=== PATIENT | female | born 2000 | race Caucasian/White ===

== ENCOUNTER 2023-12-02 21:00 | Observation (INO) | payer BC ==
[~2023-12-02] VITALS: Ht 165.1 cm; Wt 83.9 kg
[2023-12-02] MEDS: LACTATED RINGER'S 1,000 ML IV ONE (22:12)
[2023-12-02] MEDS: NIFEdipine 10 MG CAP PO ONE (23:43)
[2023-12-02] MEDS: LACTATED RINGER'S 1,000 ML IV SCH (23:46)
[2023-12-03] MEDS ORDERED: NIF10C PO (02:45)
[2023-12-03] MEDS ORDERED: PREN-96 PO (02:46)
== END 2023-12-03 02:56 | disposition home or self-care (01) ==
LOC: EEVIPCON 21:00 → LDRP 21:00
PROVIDERS: ADMIT Obstetrics & Gynecology; ATTEND Obstetrics & Gynecology
DX: O62.9 Abnormality of forces of labor, unspecified (principal); O99.352 Diseases of the nervous system complicating pregnancy, second trimester; R00.2 Palpitations; Z3A.28 28 weeks gestation of pregnancy; Z88.5 Allergy status to narcotic agent
CPT/HCPCS: 59025; 76815; 81002; 94760; 96360; 96361; G0378

== ENCOUNTER 2023-12-13 18:46 | Observation (INO) | payer BC ==
[~2023-12-13] VITALS: Ht 162.6 cm; Wt 86.2 kg
[~2023-12-13 18:46] MED LIST: NIF10C PO; PREN-96 PO
[2023-12-13] MEDS: LACTATED RINGER'S 1,000 ML IV ONE (20:11)
[2023-12-13] MEDS: ONDANSETRON HCL 4 MG/2 ML VIAL IV ONE (20:14)
[2023-12-13] MEDS: BETAMETHASONE ACET (30mg/5ml) 5ml Vial 6mg/ml IM ONE (22:21)
== END 2023-12-13 22:53 | disposition home or self-care (01) ==
LOC: LDRP 18:46
PROVIDERS: ADMIT Obstetrics & Gynecology; ATTEND Obstetrics & Gynecology
DX: O60.03 Preterm labor without delivery, third trimester (principal); O21.2 Late vomiting of pregnancy; Z3A.29 29 weeks gestation of pregnancy
CPT/HCPCS: 59025; 76815; 81002; 94760; 96361; 96372; 96374; G0378; J0702; J2405; 96360

== ENCOUNTER 2023-12-14 07:56 | Observation (INO) | payer BC ==
[~2023-12-14] VITALS: Ht 162.6 cm; Wt 86.2 kg
[2023-12-14] MEDS: BETAMETHASONE ACET (30mg/5ml) 5ml Vial 6mg/ml IM STA (10:23)
== END 2023-12-14 10:55 | disposition home or self-care (01) ==
LOC: LDRP 09:38 → UNDOADMOB 09:38 → LDRP 10:07
PROVIDERS: ADMIT Obstetrics & Gynecology; ATTEND Obstetrics & Gynecology
DX: O47.03 False labor before 37 completed weeks of gestation, third trimester (principal); Z3A.29 29 weeks gestation of pregnancy
CPT/HCPCS: 59025; 81002; 94760; 96372; G0378

== ENCOUNTER 2024-02-23 10:04 | Observation (INO) | payer BC ==
[~2024-02-23 10:04] MED LIST changes: -NIF10C PO; +NIFE10CA52 PO
== END 2024-02-23 11:14 | disposition home or self-care (01) ==
LOC: LDRP 10:04
PROVIDERS: ADMIT Obstetrics & Gynecology; ATTEND Obstetrics & Gynecology
DX: O60.03 Preterm labor without delivery, third trimester (principal); Z3A.40 40 weeks gestation of pregnancy
CPT/HCPCS: 59025; 76818; 81002; 94760; G0378

== ENCOUNTER 2024-02-24 22:48 | Inpatient (IN) | payer BC ==
[~2024-02-24] VITALS: Ht 165.1 cm; Wt 90.7 kg
[2024-02-24] MEDS ORDERED: BUTORPHANOL TARTRATE 2 MG/1 ML VIAL IV PRN ×2 (23:30)
[2024-02-24 23:46] LABS: Urine Bacteria None Seen /hpf (None Seen)
[2024-02-24 23:51] LABS: Basophils # (auto) 0 10 ^3/uL (0-0.2); Basophils % (auto) 0.3 % (0.0-2.0); Eosinophils # (auto) 0 10 ^3/uL (0-0.8); Eosinophils % (auto) 0.6 % (0.0-7.0); Hematocrit 37.6 % (36.0-46.0); Hemoglobin 12.8 g/dL (12.2-16.2); Lymphocytes # (auto) 2.1 10 ^3/uL (0.4-5.4); Lymphocytes % (auto) 25.6 % (10.0-50.0); Mean Corpuscular Hemoglobin 31.8 pg (28.0-32.0); Mean Corpuscular Hgb Conc. 33.9 g/dL (32.0-36.0); Mean Corpuscular Volume 93.7 fL (80.0-100.0); Monocytes # (auto) 1.1 10 ^3/uL (0-1.3); Monocytes % (auto) 13.3 % (0.0-12.0); Neutrophils % (auto) 60.2 % (37.0-80.0); Nucleated Red Blood Cells % 0.2 %; Platelet Count (auto) 181 10^3/uL (140-450); Red Blood Cells 4.01 10^6/uL (4.0-5.20); Red Cell Distribution Width 14.1 % (11.8-14.3); White Blood Cell 8.3 10^3/uL (4.4-10.8)
[2024-02-24 23:57] LABS: Urine Blood Negative /uL (Negative); Urine Clarity Clear (Clear); Urine Color Light-Yellow (Yellow); Urine Protein, UAD Negative (Negative); Urine Specific Gravity 1.012 (1.001-1.035); Urine Urobilinogen Normal (Negative); Urine WBC 2 /hpf (0 - 5)
[2024-02-24] MEDS: LACTATED RINGER'S 1,000 ML IV SCH (23:57)
[2024-02-25 00:06] LABS: INR 0.94 (0.9-1.15); Partial Thromboplastin Time 25.1 SEC (24.5-34.5)
[2024-02-25 00:13] LABS: Amphetamine Screen, Urine Neg (NEGATIVE); Benzodiazephine Screen, Urine Neg (NEGATIVE)
[2024-02-25 00:14] LABS: Barbiturate Scree,Urine Neg (NEGATIVE); Cannabinoid Screen, Urine Neg (NEGATIVE); Cocaine Screen, Urine Neg (NEGATIVE); Opiate Scree,Urine Neg (NEGATIVE); Phencyclidine Screen, Urine Neg (NEGATIVE)
[2024-02-25] MEDS ORDERED: ONDANSETRON HCL 4 MG/2 ML VIAL IV PRN ×3 (00:15→13:30)
[2024-02-25 00:17] LABS: Alanine Aminotransferase 18 U/L (7-40); Albumin 3.9 g/dL (3.2-4.8); Alkaline Phosphatase 142 U/L (46-116); Anion Gap 9 (5-15); Aspartate Aminotransferase 21 U/L (13-40); BUN/Creatinine Ratio 14.3 (10.0-20.0); Bilirubin, Total 0.8 mg/dL (0.2-1.0); Blood Urea Nitrogen 8 mg/dL (9-23); Calcium 9.3 mg/dL (8.7-10.4); Carbon Dioxide 21 mmol/L (20-30); Chloride 107 mmol/L (98-107); Glucose 84 mg/dL (74-106); Potassium 3.9 mmol/L (3.5-5.1); Sodium 137 mmol/L (136-145); Total Protein 6.5 g/dL (5.7-8.2)
[2024-02-25] MEDS ORDERED: LACTATED RINGER'S 500 ML IV ONE (03:15)
[2024-02-25] MEDS ORDERED: NALOXONE HCL 0.4 MG/ML VIAL IV ONE (03:15)
[2024-02-25] MEDS ORDERED: LIDOCAINE HCL 2 %PF INJ 10ML AMP IJ ONE (03:15)
[2024-02-25] MEDS ORDERED: Lidocaine W-Epinephrine 1.5%-1:200,000 INJ 10ml Vial IJ ONE (03:15)
[2024-02-25] MEDS ORDERED: ePHEDrine SULFATE 50 MG/ML AMP IV ONE (03:15)
[2024-02-25] MEDS: WITCH HAZEL-GLYCERIN PAD TOP PRN (03:24)
[2024-02-25] MEDS: PHISODERM TOP SOLN 240ML BTL TOP PRN (03:24)
[2024-02-25] MEDS: DERMOPLAST 60ML BOTTLE TOP PRN (03:24)
[2024-02-25] MEDS ORDERED: ROPIVACAINE HCL 200 ML ONE (03:28)
[2024-02-25] MEDS ORDERED: NALBUPHINE HCL 10 MG/1ml INJECTION IV PRN (05:00)
[2024-02-25] MEDS: fentaNYL CITRATE 100 MCG/2 ML VL EPI ONE (07:44)
[2024-02-25] MEDS ORDERED: miSOPROStol 100 mcg TAB SL PRN (08:45)
[2024-02-25] MEDS ORDERED: METHYLERGONOVINE MALEATE 0.2 MG/ML AMP IM PRN (08:45)
[2024-02-25] MEDS ORDERED: CARBOPROST TROMETHAMINE 250 MCG/1ML VIAL IM PRN (08:45)
[2024-02-25] MEDS ORDERED: TRANEXAMIC ACID 1,000 MG in SODIUM CHL 0.9% 100 ML IV PRN (08:45)
[2024-02-25] MEDS ORDERED: ACETAMINOPHEN 325 MG TAB PO PRN ×2 (08:45→21:45)
[2024-02-25] MEDS: fentaNYL CITRATE 100 MCG/2 ML VL ONE (11:43)
[2024-02-25] MEDS ORDERED: DIPHENOXYLATE W/ATROPINE 2.5 MG TAB PO SCH (12:00)
[2024-02-25] MEDS: LACT. RINGERS/OXYTOCIN 20UNITS 1,000 ML IV SCH (12:14)
[2024-02-25] MEDS ORDERED: fentaNYL CITRATE 100 MCG/2 ML VL ONE (12:56)
[2024-02-25] MEDS ORDERED: MORPHINE SULF PF 5 MG/10 ML VIAL ONE (12:56)
[2024-02-25] MEDS ORDERED: diphenhdrAMINE HCL 50 MG/1 ML VL IV PRN ×2 (13:30→17:15)
[2024-02-25] MEDS ORDERED: NALBUPHINE HCL 10 MG/1ml INJECTION IV ONE (13:30)
[2024-02-25] MEDS ORDERED: NALOXONE HCL 0.4 MG/ML VIAL IV PRN (13:30)
[2024-02-25] MEDS: diphenhdrAMINE HCL 50 MG/1 ML VL IV PRN (17:33)
[2024-02-25] MEDS: ceFAZolin 2 GM/D5W50ml 50 ML IV SCH (17:50)
[2024-02-25] MEDS ORDERED: ePHEDrine SULFATE 50 MG/ML AMP ONE (18:57)
[2024-02-25] MEDS: MINERAL OIL TOPICAL 10ml TOP ONE (20:45)
[2024-02-25] MEDS: LACT. RINGERS/OXYTOCIN 20UNITS 500 ML IV ONE ×2 (20:46→21:53)
[2024-02-25] MEDS: LIDOCAINE 2%HCL (LOCAL ANESTH.) INJ 20ML MDV IJ PRN (20:47)
[2024-02-25] MEDS ORDERED: DOCUSATE SOD 100 MG CAP PO SCH (22:00)
[2024-02-25] MEDS: IBUPROFEN 600 MG TAB PO PRN (22:53)
[2024-02-25 23:00] VITALS: BP 132/65; PULSE 98; RESP 18; TEMP 98.1; O2SAT 96
[2024-02-26 02:57] VITALS: BP 125/69; PULSE 102; RESP 18; TEMP 97.1; O2SAT 97
[2024-02-26 07:00] VITALS: BP 113/55; PULSE 106; RESP 16; TEMP 97.7; O2SAT 97
[2024-02-26 07:07] LABS: RPR Non Reactive (Non Reactive)
[2024-02-26 07:46] LABS: Basophils # (auto) 0 10 ^3/uL (0-0.2); Basophils % (auto) 0.1 % (0.0-2.0); Eosinophils # (auto) 0 10 ^3/uL (0-0.8); Eosinophils % (auto) 0.2 % (0.0-7.0); Hemoglobin 10.9 g/dL (12.2-16.2); Lymphocytes # (auto) 1.8 10 ^3/uL (0.4-5.4); Lymphocytes % (auto) 11.9 % (10.0-50.0); Mean Corpuscular Hemoglobin 31.8 pg (28.0-32.0); Mean Corpuscular Hgb Conc. 34.1 g/dL (32.0-36.0); Mean Corpuscular Volume 93.4 fL (80.0-100.0); Monocytes # (auto) 1.9 10 ^3/uL (0-1.3); Monocytes % (auto) 12.6 % (0.0-12.0); Neutrophils # (auto) 11.4 10 ^3/uL (1.6-8.6); Neutrophils % (auto) 75.2 % (37.0-80.0); Platelet Count (auto) 167 10^3/uL (140-450); Red Blood Cells 3.43 10^6/uL (4.0-5.20); Red Cell Distribution Width 14.3 % (11.8-14.3); White Blood Cell 15.2 10^3/uL (4.4-10.8)
[2024-02-26] MEDS ORDERED: IBU600T PO (07:47)
[2024-02-26] MEDS ORDERED: DOCU-265 PO (07:47)
[2024-02-26] MEDS ORDERED: PRENATAL VITAMIN TAB PO SCH (10:00)
== END 2024-02-26 10:43 | disposition home or self-care (01) | DRG 768 ==
LOC: LDRP 22:48 → OBSVTOIN 23:15 → LDRP 23:16
PROVIDERS: ADMIT Obstetrics & Gynecology; ATTEND Obstetrics & Gynecology
PROC: 10E0XZZ Delivery of Products of Conception, External Approach (ICD-10-PCS; principal; 2024-02-25)
PROC: 0TQDXZZ Repair Urethra, External Approach (ICD-10-PCS; 2024-02-25)
PROC: 0UQMXZZ Repair Vulva, External Approach (ICD-10-PCS; 2024-02-25)
PROC: 3E0R3BZ Introduction of Anesthetic Agent into Spinal Canal, Percutaneous Approach (ICD-10-PCS; 2024-02-25)
PROC: 00HU33Z Insertion of Infusion Device into Spinal Canal, Percutaneous Approach (ICD-10-PCS; 2024-02-25)
DX: O48.0 Post-term pregnancy (principal); Z37.0 Single live birth; O71.5 Other obstetric injury to pelvic organs; Z3A.40 40 weeks gestation of pregnancy; Z88.1 Allergy status to other antibiotic agents; O70.0 First degree perineal laceration during delivery
CPT/HCPCS: 36415; 59025; 59409; 62282; 76818; 80053; 80307; 81001; 84439; 84443; 85025; 85610; 85730; 86592; 86803; 86850; 86900; 86901; 94760; 94762; 96360; 96361; 96365; 96366; G0378; J2590